=== PATIENT | male | born 1945 | race Caucasian/White ===

== ENCOUNTER → 2016-04-28 | Outpatient (CLI) | payer OTHER ==
[~2016-04-28] MED LIST: ACET-749 PO; ASPI81TA28 PO; ATOR-24 PO; CARB100C2 PO; CARB200T PO; CIPR1TAB10 PO; NORT25CA PO; RANI300T2 PO; SODI0.9I55 IV; TAMS0.4C38 PO
[2016-04-28 20:54] LABS: HEMATOCRIT 35.4 % (42-52); MEAN CELL VOLUME 90.3 fL (80-100); MEAN CORPUSCULAR HEMOGLOBIN 31.1 pg (25-34); MEAN PLATELET VOLUME 9.4 fL (7.4-10.4); PLATELET COUNT 323 K/uL (130-400); RED BLOOD COUNT 3.92 M/uL (4.7-6.1); WHITE BLOOD COUNT 13.52 K/uL (4.8-10.8)
[2016-04-28 21:09] LABS: MEAN CORPUSCULAR HGB CONC 34.5 g/dl (32-36)
[2016-04-28 21:14] LABS: ALT/SGPT 20 U/L (12-78); BLOOD UREA NITROGEN 75 mg/dl (7-18); BUN/CREATININE RATIO 32.8 (10-20); CALCIUM 8.7 mg/dl (8.5-10.1); CARBON DIOXIDE 21 mmol/L (21-32); CHLORIDE 104 mmol/L (98-107); GLUCOSE 104 mg/dl (70-99); POTASSIUM 4.9 mmol/L (3.5-5.1); SODIUM 136 mmol/L (136-145)
[2016-04-28 21:15] LABS: ALB/GLOB RATIO 0.9 (0.9-2); ALKALINE PHOSPHATASE 123 U/L (45-117); AST/SGOT 28 U/L (15-37)
== END | disposition home or self-care (01) ==
LOC: C.LABSPEC 11:53
PROVIDERS: ATTEND Nurse Practitioner Adult Health
DX: Z00.00 Encounter for general adult medical examination without abnormal findings (principal)

== ENCOUNTER 2016-04-29 03:44 | Emergency (ER) | payer OTHER ==
[~2016-04-29 03:44] MED LIST changes: -ACET-749 PO; -ASPI81TA28 PO; -ATOR-24 PO; -CIPR1TAB10 PO; -SODI0.9I55 IV
[2016-04-29 03:46] VITALS: TEMP 36.8; Ht 170.2 cm
--- NOTE | 2016-04-29 04:29 | EMERGENCY ROOM VISIT NOTE ---
History Report prepared by Aye: Rudolph Montoya Under the Supervision of: Dr. Ragini Manriquez D.O. First contact with patient: 03:55 Chief Complaint: ABDOMINAL PAIN Stated Complaint: PAIN - NO URINATION - KIDNEY STNE SURGERY Nursing Triage Summary: Pt reports lower abd pain since last . Also reports difficulty urinating, has not had a BM since last . Pt had prostates bx and kidney stones removed. Denies n/v. History of Present Illness The patient is a 70 year old male who presents to the Emergency Room with complaints of worsening sharp abdominal pain for the past 9 days. The patient currently rates his discomfort as a 10/10 in severity. The patient additionally complains of difficulty urinating, dysuria, and hematuria. The patient states that he has not had any recent bowel movements, and he does not remember the last time that he urinated. He states that the pain radiates into his back and his groin. Patient describes urinary incontinence where he is dribbling hematuria. The patient denies any fevers or chills. He states that the pain is worse after eating food. The patient states that he had a kidney surgery done 9 days ago, and he states that 8 days ago they did a prostate biopsy after elevated PSA and urinary retention. The patient additionally stated that he had a kidney stone in 2004. The patient denies any family history of prostate or bladder cancer. Source of History: patient Onset: 9 days ago Position: abdomen Symptom Intensity: 10/10 Quality: sharp Timing: worsening Modifying Factors (Worsening): eating Associated Symptoms: + urinary symptoms, No chills, No fevers Review of Systems See HPI for pertinent positives & negatives. A total of 10 systems reviewed and were otherwise negative. Past Medical & Surgical Medical Problems: (1) Kidney stone Family History Patient reports no known family medical history. Social History Smoking Status: Current Every Day Smoker Marital Status: single Housing Status: other (residential) Occupation Status: other (prisoner) Current/Historical Medications Scheduled Aspirin (Aspirin Ec), 81 MG PO DAILY Atorvastatin (Lipitor), 40 MG PO DAILY Carbamazepine (Tegretol), 100 MG PO BID Carbamazepine (Tegretol), 200 MG PO BID Ciprofloxacin Hcl (Cipro), 500 MG PO BID Nortriptyline (Pamelor), 25 MG PO QPM Sodium Chloride Flush (Normal Saline Flush), 1,000 ML IV DAILY Tamsulosin Hcl (Flomax), 0.4 MG PO QPM Scheduled PRN Acetaminophen/Codeine (Tylenol W/Codeine #3), 1-2 TAB PO QID PRN for Pain Allergies Coded Allergies: NO KNOWN DRUG ALLERGIES (Verified Allergy, Unknown, ., 07/09/15) Physical Exam Vital Signs Date Time Temp Pulse Resp B/P Pulse Ox O2 Delivery O2 Flow Rate FiO2 04/29/16 05:33 82 20 129/47 99 Room Air 04/29/16 03:46 36.8 88 18 141/67 97 Room Air Physical Exam HEENT: Head - normocephalic and atraumatic Pupils are equal, round, and reactive to light. Extraocular eye muscles are intact, and sclera are anicteric. Nose - moist nasal mucosa without discharge. Mouth - dry buccal mucosa. Oropharynx is nonerythematous and there is no tonsillar exudate or edema noted. Neck: Supple; no JVD, nuchal rigidity, cervical lymphadenopathy. Heart: Regular rate and rhythm. There is a normal S1 and S2 with no murmurs, clicks, or gallops appreciated. Lungs: Clear to auscultation bilaterally with no wheezes, rales, or rhonchi. Abdomen: Distended with hyperactive bowel sounds. Tenderness to palpation and rebound tenderness. Hyperresonant to tympany. There are no palpable pulsatile masses or hepatosplenomegaly. There is no guarding, rigidity, or rebound noted. Extremities: No evidence of cyanosis, clubbing, or edema. There are easily palpable peripheral pulses. Skin: warm and dry with good turgor and no rashes. Medical Decision & Procedures ER Provider Diagnostic Interpretation: X-ray results as stated below per interpretation by me: Obstruction series: Moderate colonic fecal retention. No signs of bowel obstruction. No free air. Laboratory Results 04/29/16 04:56 Red Blood Count 3.80, Mean Corpuscular Volume 91.6, Mean Corpuscular Hemoglobin 31.1, Mean Corpuscular Hemoglobin Concent 33.9, Mean Platelet Volume 8.9, Neutrophils (%) (Auto) 77.1, Lymphocytes (%) (Auto) 8.8, Monocytes (%) (Auto) 10.5, Eosinophils (%) (Auto) 3.1, Basophils (%) (Auto) 0.3, Neutrophils # (Auto ) 8.42, Lymphocytes # (Auto) 0.96, Monocytes # (Auto) 1.15, Eosinophils # (Auto ) 0.34, Basophils # (Auto) 0.03 04/29/16 04:56 Test 04/29/16 04:27 04/29/16 04:56 Urine Color BROWN Urine Appearance CLOUDY (CLEAR) Urine pH (4.5-7.5) Urine Specific [place] 1.015 (1.000-1.030) Urine Protein POS (NEG) Urine Glucose (UA) (NEG) Urine Ketones (NEG) Urine Occult Blood (NEG) Urine Nitrite (NEG) Urine Bilirubin (NEG) Urine Urobilinogen (NEG) Urine Leukocyte Esterase (NEG) Urine WBC (Auto) >30 /hpf (0-5) Urine RBC (Auto) >30 /hpf (0-4) Urine Epithelial Cells (Auto) 5-10 /lpf (0-5) White Blood Count 10.92 K/uL (4.8-10.8) Red Blood Count 3.80 M/uL (4.7-6.1) Hemoglobin 11.8 g/dL (14.0-18.0) Hematocrit 34.8 % (42-52) Mean Corpuscular Volume 91.6 fL (80-100) Mean Corpuscular Hemoglobin 31.1 pg (25-34) Mean Corpuscular Hemoglobin Concent 33.9 g/dl (32-36) Platelet Count 294 K/uL (130-400) Mean Platelet Volume 8.9 fL (7.4-10.4) Neutrophils (%) (Auto) 77.1 % Lymphocytes (%) (Auto) 8.8 % Monocytes (%) (Auto) 10.5 % Eosinophils (%) (Auto) 3.1 % Basophils (%) (Auto) 0.3 % Neutrophils # (Auto) 8.42 K/uL (1.4-6.5) Lymphocytes # (Auto) 0.96 K/uL (1.2-3.4) Monocytes # (Auto) 1.15 K/uL (0.11-0.59) Eosinophils # (Auto) 0.34 K/uL (0-0.5) Basophils # (Auto) 0.03 K/uL (0-0.2) RDW Standard Deviation 49.6 fL (36.4-46.3) RDW Coefficient of Variation 14.8 % (11.5-14.5) Immature Granulocyte % (Auto) 0.2 % Immature Granulocyte # (Auto) 0.02 K/uL (0.00-0.02) Anion Gap 11.0 mmol/L (3-11) Estimated GFR () 30.3 Estimated GFR (Non- 26.2 BUN/Creatinine Ratio 29.9 (10-20) Calcium Level 8.5 mg/dl (8.5-10.1) Total Bilirubin 0.3 mg/dl (0.2-1) Direct Bilirubin < 0.1 mg/dl (0-0.2) Aspartate Amino Transf (AST/SGOT) 19 U/L (15-37) Alanine Aminotransferase (ALT/SGPT) 18 U/L (12-78) Alkaline Phosphatase 107 U/L (45-117) Total Protein 7.2 gm/dl (6.4-8.2) Albumin 3.2 gm/dl (3.4-5.0) Lipase 279 U/L (73-393) Laboratory results per my review. Medications Administered Medications (Trade) Dose Ordered Sig/Subha Route Start Time Stop Time Status Last Admin Dose Admin Sodium Chloride 500 ml @ 999 mls/hr Q31M STAT IV 04/29/16 04:35 04/29/16 05:05 DC 04/29/16 04:45 999 MLS/HR Sodium Chloride (Nss 1000ml) 1,000 ml @ 999 mls/hr Q1H1M STAT IV 04/29/16 05:45 04/29/16 06:45 04/29/16 05:48 999 MLS/HR Procedure Sodium Chloride ED Course 0429: Past medical records reviewed. The patient was evaluated in room B10. A complete history and physical exam was performed. A Pires catheter was placed and immediately drained 1 L of bloody urine. It was clamped. An IV lock was initiated and labs are drones above. A second liter of bloody urine was then drained. 0435: Sodium Chloride 500 ml @ 999 mls/hr IV. The patient went for an obstruction series as described above. He had significant resolution of symptoms after the Pires catheter drained his bladder. 0545: Sodium Chloride 1000 ml @ 999 mls/hr IV. 0552: I discussed the patient's case with the charge nurse at the residential. 0615: Upon reevaluation, he is much more comfortable drinking clear liquids. I discussed findings and results with him. He verbalized agreement of the treatment plan. He was discharged back to the residential with the Pires catheter and a leg bag in place. Medical Decision The patient is a 70 year old male who presents to the ED with abdominal pain. Differential diagnosis includes urinary outlet obstruction, prostatic hypertrophy, obstructing kidney stone, hemorrhagic cystitis, and renal failure. Lab: White blood cell count 10.9, Hemoglobin 11.8, BUN 72, creatinine 2.4, glucose of 103, normal lipase and LFTs. Urine is brown and cloudy, positive protein, greater than 30 white blood cells, greater than 30 red blood cells. The patient presents to the emergency room with significant abdominal distention and pain. He describes not having a bowel movement for quite some time and not urinating since a urological procedure last week. He has had hematuria and states that he has been incontinent and soiling his clothes all week. The patient had laboratory studies done at the residential yesterday which revealed a creatinine of 2.3. This is most likely secondary to a urinary all obstruction. The patient has drained more than 3 L of urine from his bladder wall here in the emergency department today. He was given 1.5 L of normal saline solution. He had significant relief of his abdominal discomfort after the catheter was placed. I've asked them to recheck his renal function tests by tomorrow evening. He will be discharged with the Pires catheter in place. Impression Primary Impression: Acute renal failure Additional Impression: Acute urinary retention Scribe Attestation The scribe's documentation has been prepared under my direction and personally reviewed by me in its entirety. I confirm that the note above accurately reflects all work, treatment, procedures, and medical decision making performed by me. Departure Information Dispostion Home / Self-Care Referrals Jacinto Pollard M.D. (PCP) Forms HOME CARE DOCUMENTATION FORM, IMPORTANT VISIT INFORMATION Patient Instructions ED Catheter Care Danae Pires [facility] Additional Instructions Rest. You must take plenty of clear liquids Recheck BUN/Creatinine by tomorrow evening. Pires cath to remain in place until follow up with Urology Problem Qualifiers
[2016-04-29] MEDS ORDERED: SODIUM CHLORIDE 0.9% 500ML 500 ML IV STA (04:35)
[2016-04-29 05:07] LABS: BASO % 0.3 %; BASO ABS # 0.03 K/uL (0-0.2); COMPLETE YES; EOS % 3.1 %; HEMATOCRIT 34.8 % (42-52); IG% 0.2 %; LYMPH % 8.8 %; LYMPH ABS # 0.96 K/uL (1.2-3.4); MEAN CELL VOLUME 91.6 fL (80-100); MEAN CORPUSCULAR HEMOGLOBIN 31.1 pg (25-34); MEAN CORPUSCULAR HGB CONC 33.9 g/dl (32-36); MEAN PLATELET VOLUME 8.9 fL (7.4-10.4); MONO % 10.5 %; NEUT % 77.1 %; PLATELET COUNT 294 K/uL (130-400); WHITE BLOOD COUNT 10.92 K/uL (4.8-10.8)
[2016-04-29 05:24] LABS: MANUAL MICROSCOPIC REQUIRED? YES; REVIEW REQ? NO
[2016-04-29 05:25] LABS: URINE APPEARANCE CLOUDY (CLEAR); URINE COLOR BROWN; URINE SPECIFIC GRAVITY 1.015 (1.000-1.030)
[2016-04-29 05:26] LABS: SULFASALICYLIC ACID POS (NEG)
[2016-04-29 05:37] LABS: BLOOD UREA NITROGEN 72 mg/dl (7-18); GLUCOSE 103 mg/dl (70-99)
[2016-04-29 05:38] LABS: ALT/SGPT 18 U/L (12-78); AST/SGOT 19 U/L (15-37); BUN/CREATININE RATIO 29.9 (10-20); CALCIUM 8.5 mg/dl (8.5-10.1); CARBON DIOXIDE 21 mmol/L (21-32); CHLORIDE 107 mmol/L (98-107); POTASSIUM 4.3 mmol/L (3.5-5.1); SODIUM 139 mmol/L (136-145)
[2016-04-29 05:40] LABS: ALKALINE PHOSPHATASE 107 U/L (45-117)
[2016-04-29] MEDS ORDERED: ASPI81TA28 PO (05:45)
[2016-04-29] MEDS ORDERED: SODIUM CHLORIDE 0.9% 1000ML 1,000 ML IV STA (05:45)
[2016-04-29] MEDS ORDERED: ATOR-24 PO (05:46)
[2016-04-29] MEDS ORDERED: CIPR1TAB10 PO (05:51)
[2016-04-29] MEDS ORDERED: ACET-749 PO (05:56)
[2016-04-29] MEDS ORDERED: SODI0.9I55 IV (06:01)
--- NOTE | 2016-04-29 06:41 | DIAGNOSTIC IMAGING REPORT ---
ABDOMEN 2VIEW W/PA CHEST RTN CLINICAL HISTORY: eval for sob obstruction COMPARISON STUDY: No previous studies for comparison. FINDINGS: Lungs are clear. Diaphragms smooth. Left ureteral stent in good position. Minimal nonobstructive ileus. IMPRESSION: 1. Negative chest. 2. Minimal nonobstructive ileus. 3. Left ureteral stent in good position Electronically signed by: Myron Tabor M.D. 04/29/2016 6:40 AM Dictated Date/Time: 04/29/2016 6:39 AM
[2016-04-29 06:55] VITALS: BP 133/59; PULSE 88; O2SAT 98
== END 2016-04-29 06:57 | disposition home or self-care (01) ==
LOC: C.EDB 03:45
DX: N17.9 Acute kidney failure, unspecified (principal); R33.9 Retention of urine, unspecified

== ENCOUNTER → 2016-04-30 | Outpatient (CLI) | payer OTHER ==
[~2016-04-30] MED LIST changes: +ACET-749 PO; +ASPI81TA28 PO; +ATOR-24 PO; +CIPR1TAB10 PO; +SODI0.9I55 IV
[2016-04-30 08:28] LABS: BASO % 0.7 %; BASO ABS # 0.05 K/uL (0-0.2); EOS % 7.7 %; HEMATOCRIT 31.8 % (42-52); IG% 0.3 %; LYMPH % 23.5 %; LYMPH ABS # 1.73 K/uL (1.2-3.4); MEAN CELL VOLUME 92.7 fL (80-100); MEAN CORPUSCULAR HEMOGLOBIN 30.6 pg (25-34); MEAN PLATELET VOLUME 9.1 fL (7.4-10.4); MONO % 9.8 %; PLATELET COUNT 317 K/uL (130-400); RED BLOOD COUNT 3.43 M/uL (4.7-6.1); WHITE BLOOD COUNT 7.36 K/uL (4.8-10.8)
[2016-04-30 08:43] LABS: BLOOD UREA NITROGEN 27 mg/dl (7-18); BUN/CREATININE RATIO 28.9 (10-20); CALCIUM 7.8 mg/dl (8.5-10.1); CARBON DIOXIDE 25 mmol/L (21-32); CHLORIDE 110 mmol/L (98-107); CREATININE 0.92 mg/dl (0.60-1.40); GLUCOSE 88 mg/dl (70-99); POTASSIUM 5.1 mmol/L (3.5-5.1); SODIUM 142 mmol/L (136-145)
[2016-04-30 09:06] LABS: COMPLETE YES
== END | disposition home or self-care (01) ==
LOC: C.LABSPEC 08:02
DX: Z00.00 Encounter for general adult medical examination without abnormal findings (principal)